=== PATIENT | male | born 1975 | race Caucasian/White ===

== ENCOUNTER 2022-10-15 05:37 | Day surgery (SDC) | payer OTHER ==
[~2022-10-15] VITALS: Ht 177.8 cm; Wt 87.0 kg
[2022-10-15] MEDS ORDERED: LIDOCAINE 2% 11 ML JELLY TP ONE (05:38)
[2022-10-15] MEDS ORDERED: BENZOCAINE 20% 50 MCG/SPRAY 57 GM TP ONE (05:38)
[2022-10-15] MEDS ORDERED: LIDOCAINE 4% 50 ML SOLUTION TP ONE (05:38)
[2022-10-15] MEDS ORDERED: ALBUTEROL SULFATE 2.5 MG/0.5 ML NEB SOLUTION NEB ONE (05:38)
[2022-10-15] MEDS ORDERED: SODIUM CHLORIDE 0.9% 1,000 ML IV ONE (06:30)
[2022-10-15 06:45] LABS: COVID AG,FIA SOURCE NASAL SWAB
[2022-10-15] MEDS ORDERED: SODIUM CHLORIDE 0.9% 1,000 ML ONE (07:05)
[2022-10-15] MEDS ORDERED: FentaNYL CITRATE PF 100 MCG/2 ML VIAL ONE (08:28)
[2022-10-15] MEDS ORDERED: MIDAZOLAM HCL 5 MG/ML VIAL ONE (08:28)
[2022-10-15] MEDS ORDERED: MethylPREDNISolone SOD SUCC 125 MG/2 ML VIAL IVP ONE (09:30)
[2022-10-15] MEDS ORDERED: OXYGEN THERAPY IH SCH (20:00)
== END 2022-10-15 11:05 | disposition home or self-care (01) ==
LOC: SURGERY 05:37
PROVIDERS: ATTEND Internal Medicine Critical Care Medicine
DX: J38.4 Edema of larynx (principal); B37.0 Candidal stomatitis; Z88.0 Allergy status to penicillin; I10 Essential (primary) hypertension; E11.9 Type 2 diabetes mellitus without complications; Z79.899 Other long term (current) drug therapy; Z98.890 Other specified postprocedural states; Z20.822 Contact with and (suspected) exposure to COVID-19
CPT/HCPCS: 31623; 87101; 87220; 87070; 88108; 87015; 88305; 31624; 71045; 87426; 87206; J3010; J2930; J2250; Q9967; J7030; C9803; J7613; Z7610